=== PATIENT | female | born 1985 | race Hispanic/Latino ===

== ENCOUNTER 2022-06-01 00:12 | Emergency (ER) | payer OTHER ==
[~2022-06-01] VITALS: Ht 152.4 cm; Wt 53.1 kg
[2022-06-01] MEDS ORDERED: 0.9%NACL 1000ML 1,000 ML IV ONE (02:30)
[2022-06-01] MEDS ORDERED: PROCHLORPERAZINE 10MG/2ML INJ IV ONE (02:30)
[2022-06-01] MEDS ORDERED: DiphenhydrAMINE HCL 50 MG/ML VIAL IV ONE (02:30)
[2022-06-01 02:37] LABS: BASOPHILS % (AUTO) 0.5 % (0.0-5.0); EOSINOPHILS % (AUTO) 1.9 % (0.0-8.0); HEMATOCRIT 37.1 % (36-48); LYMPHOCYTES % (AUTO) 35.6 % (21.0-51.0); MEAN CORPUSCULAR HEMOGLOBIN 31.8 pg (27.0-33.0); MEAN CORPUSCULAR HGB CONC 34.5 g/dL (32.0-36.0); MEAN CORPUSCULAR VOLUME 92.1 fL (79-99); MONOCYTES % (AUTO) 7.3 % (3.0-13.0); NEUTROPHILS % (AUTO) 54.4 % (40.0-77.0); PLATELET COUNT (AUTO) 267 K/uL (130-400); RED BLOOD CELL COUNT(AUTO) 4.03 MIL/uL (4.00-5.50); RED CELL DISTRIBUTION WIDTH 11.9 % (11.0-15.5); WHITE BLOOD COUNT (AUTO) 6.3 K/uL (4.8-10.8)
[2022-06-01 02:45] LABS: CREATININE 0.8 mg/dL (0.5-1.5); POTASSIUM 3.6 mmol/L (3.5-5.1)
[2022-06-01 02:51] VITALS: BP 105/58
[2022-06-01 02:54] LABS: ALBUMIN 3.8 g/dL (3.5-5.0)
[2022-06-01] MEDS ORDERED: LORA10TA7 PO (03:13)
[2022-06-01] MEDS ORDERED: DICL20GE TP (03:13)
[2022-06-01] MEDS ORDERED: FLUT16H NASAL (03:13)
== END 2022-06-01 03:23 | disposition home or self-care (01) ==
LOC: EDH 00:12
DX: G44.209 Tension-type headache, unspecified, not intractable (principal); J32.9 Chronic sinusitis, unspecified; M79.7 Fibromyalgia
CPT/HCPCS: 99284; 96374; 96361; 96375; 80053; 85025; 36415; J1200; J7030; J0780